=== PATIENT | male | born 1955 | race African-American/Black ===

== ENCOUNTER 2022-12-16 09:20 | Inpatient (IN) | payer BC, MEDICAID ==
[~2022-12-16] VITALS: Ht 182.9 cm; Wt 93.0 kg
[2022-12-16] MEDS ORDERED: ASPIRIN 325MG EC TABLET PO ONE (10:00)
[2022-12-16] MEDS ORDERED: ASPIRIN 325MG EC TABLET PO NR (12:15)
[2022-12-16 13:35] LABS: BASOPHILS % 0.4 % (0.0-2.0); EOSINOPHILS % 5.5 % (0.0-5.0); HEMATOCRIT. 50.8 % (42.0-52.0); HEMOGLOBIN. 17.1 g/dL (14.0-18.0); LYMPHOCYTES % 21.7 % (20.0-50.0); MEAN CORPUSCULAR HEMOGLOBIN 31.7 pg (28.0-32.0); MEAN CORPUSCULAR VOLUME 93.8 fL (80.0-94.0); MEAN PLATELET VOLUME 8.2 fl (7.4-10.4); MONOCYTES % 10.5 % (2.0-8.0); NEUTROPHILS % 61.9 % (40.0-76.0); PLATELET 265 x1000/uL (130-400); RED BLOOD CELL COUNT 5.42 mill/uL (4.7-6.1); RED CELL DISTRIBUTION WIDTH 14.5 % (11.6-14.6)
[2022-12-16 13:46] LABS: CHLORIDE 103 mEq/L (98-107)
[2022-12-16] MEDS ORDERED: IPRATROPIUM/ALBUTEROL 0.5-3(2.5)MG/3ML NEB NEB PRN (17:00)
[2022-12-16] MEDS ORDERED: GUAIFENESIN 200MG/10ML SUGAR FREE UDC PO PRN (17:00)
[2022-12-16] MEDS ORDERED: CLONIDINE 0.1MG TABLET PO PRN (17:00)
[2022-12-16] MEDS ORDERED: MAGNESIUM/ALUMINUM HYDROXIDE/SIMETHICONE 30ML UDC PO PRN (17:00)
[2022-12-16] MEDS ORDERED: DOCUSATE SODIUM 100MG CAPSULE PO PRN (17:00)
[2022-12-16] MEDS ORDERED: ACETAMINOPHEN 325MG TABLET PO PRN ×2 (17:00)
[2022-12-16] MEDS ORDERED: HYDROCODONE/ACETAMINOPHEN 5/325MG TABLET PO PRN (17:00)
[2022-12-16] MEDS ORDERED: NALOXONE HCL 0.4MG/ML VIAL IV PRN (17:15)
[2022-12-16] MEDS: ENOXAPARIN 40MG/0.4ML SYR SUBCUT SCH (17:20)
[2022-12-16] MEDS ORDERED: NITROGLYCERIN 0.4MG TABLET SL SL NR (17:45)
[2022-12-17 01:33] LABS: CREATINE KINASE MB FRACTION 4.7 ng/mL (0.5-3.6)
[2022-12-17 06:15] LABS: CREATINE KINASE MB FRACTION 4.4 ng/mL (0.5-3.6)
[2022-12-17 11:36] VITALS: BP 140/79
[2022-12-17 12:00] VITALS: BP 140/79
[2022-12-17] MEDS: CLOPIDOGREL 75MG TABLET PO SCH (13:25)
[2022-12-17] MEDS ORDERED: IPRATROPIUM BROMIDE (0.02%) 0.5MG/2.5ML NEB HHN PRN (14:00)
[2022-12-17] MEDS ORDERED: ALBUTEROL (0.083%) 2.5MG/3ML NEB HHN PRN (14:00)
[2022-12-17 16:00] VITALS: BP 108/72
[2022-12-17] MEDS: ENOXAPARIN 40MG/0.4ML SYR SUBCUT SCH (16:41)
[2022-12-17 17:59] LABS: T4 FREE 1.01 ng/dL (0.76-1.46)
[2022-12-17 20:00] VITALS: BP 131/80
[2022-12-17] MEDS: ATORVASTATIN CALCIUM 40MG TABLET PO SCH (21:23)
[2022-12-18] VITALS: BP 141/72
[2022-12-18 04:00] VITALS: BP 98/50
[2022-12-18 06:42] LABS: BASOPHILS % 0.9 % (0.0-2.0); EOSINOPHILS % 9.9 % (0.0-5.0); HEMATOCRIT. 42.4 % (42.0-52.0); HEMOGLOBIN. 14.8 g/dL (14.0-18.0); LYMPHOCYTES % 38.8 % (20.0-50.0); MEAN CORPUSCULAR HEMOGLOBIN 32.6 pg (28.0-32.0); MEAN CORPUSCULAR VOLUME 93.6 fL (80.0-94.0); MEAN PLATELET VOLUME 8.3 fl (7.4-10.4); MONOCYTES % 12.5 % (2.0-8.0); NEUTROPHILS % 37.9 % (40.0-76.0); PLATELET 189 x1000/uL (130-400); RED BLOOD CELL COUNT 4.53 mill/uL (4.7-6.1); RED CELL DISTRIBUTION WIDTH 13.9 % (11.6-14.6)
[2022-12-18 07:33] LABS: CHLORIDE 105 mEq/L (98-107)
[2022-12-18 07:42] LABS: PHOSPHORUS 3.4 mg/dL (2.5-4.9)
[2022-12-18 08:00] VITALS: BP 95/72
[2022-12-18] MEDS: CLOPIDOGREL 75MG TABLET PO SCH (09:02)
[2022-12-18] MEDS ORDERED: REGADENOSON 0.4 MG/5 ML IV NR (11:00)
[2022-12-18 12:00] VITALS: BP 114/90
[2022-12-18 16:00] VITALS: BP 131/80
[2022-12-18] MEDS: ENOXAPARIN 40MG/0.4ML SYR SUBCUT SCH (18:20)
[2022-12-18 20:00] VITALS: BP 134/86
[2022-12-18] MEDS: ATORVASTATIN CALCIUM 40MG TABLET PO SCH (21:14)
[2022-12-19] VITALS: BP 122/84
[2022-12-19 04:00] VITALS: BP 128/92
[2022-12-19 06:40] LABS: CHLORIDE 105 mEq/L (98-107)
[2022-12-19 07:05] LABS: BASOPHILS % 0.8 % (0.0-2.0); EOSINOPHILS % 9.1 % (0.0-5.0); HEMATOCRIT. 42.6 % (42.0-52.0); HEMOGLOBIN. 14.6 g/dL (14.0-18.0); LYMPHOCYTES % 37.9 % (20.0-50.0); MEAN CORPUSCULAR HEMOGLOBIN 32.1 pg (28.0-32.0); MEAN CORPUSCULAR VOLUME 93.8 fL (80.0-94.0); MEAN PLATELET VOLUME 8.2 fl (7.4-10.4); MONOCYTES % 11.1 % (2.0-8.0); NEUTROPHILS % 41.1 % (40.0-76.0); PLATELET 179 x1000/uL (130-400); RED BLOOD CELL COUNT 4.55 mill/uL (4.7-6.1); RED CELL DISTRIBUTION WIDTH 13.7 % (11.6-14.6)
[2022-12-19 08:00] VITALS: BP 131/77
[2022-12-19] MEDS ORDERED: REGADENOSON 0.4 MG/5 ML IV ONE (09:12)
[2022-12-19] MEDS: CLOPIDOGREL 75MG TABLET PO SCH (10:43)
[2022-12-19 12:10] VITALS: BP 130/82
[2022-12-19] MEDS ORDERED: LIP40 PO (13:16)
[2022-12-19] MEDS ORDERED: CLOP75TA15 PO (13:16)
[2022-12-19 13:32] VITALS: BP 130/82
[2022-12-19 16:00] VITALS: BP 130/82
== END 2022-12-19 16:34 | disposition home or self-care (01) | DRG 311 ==
LOC: ER 10:12 → MICUSO 16:27 → EDBEDREQTM 16:29 → EDBEDREQ 16:29 → SUPCPDRO 16:52 → 8WST 12-17 11:26
PROVIDERS: ADMIT Internal Medicine; ATTEND Internal Medicine
DX: I20.0 Unstable angina (principal); E78.00 Pure hypercholesterolemia, unspecified; J45.909 Unspecified asthma, uncomplicated; E78.5 Hyperlipidemia, unspecified; Z20.822 Contact with and (suspected) exposure to COVID-19; R73.03 Prediabetes; R42 Dizziness and giddiness; F14.90 Cocaine use, unspecified, uncomplicated; Z87.891 Personal history of nicotine dependence
CPT/HCPCS: 36415; 71045; 78452; 80048; 80053; 80061; 82550; 82553; 83036; 83735; 83880; 84100; 84439; 84443; 84484; 85025; 85379; 87426; 93005; 93017; 93306; 94640; 99285; A9500; J1650; J2785